=== PATIENT | male | born 1975 | race Caucasian/White ===

== ENCOUNTER 2020-10-20 11:31 | Emergency (ER) | payer SELFPAY ==
[2020-10-20 11:55] VITALS: BMI 26.6
[2020-10-20] MEDS ORDERED: DIPHTH,PERTUSS(ACELL),TET 0.5 ML DISP.SYRIN IM ONE ×2 (13:24→13:37)
[2020-10-20 14:27] VITALS: BP 125/79; PULSE 86; TEMP 98.1
== END 2020-10-20 14:10 | disposition home or self-care (01) ==
LOC: JERFT 11:31
PROC: 3E0234Z Introduction of Serum, Toxoid and Vaccine into Muscle, Percutaneous Approach (ICD-10-PCS; principal; 2020-10-20)
DX: S89.92XA Unspecified injury of left lower leg, initial encounter (principal)
CPT/HCPCS: 73590-TC-LT-FY; 90715; 99284-25